=== PATIENT | female | born 1950 | race Caucasian/White ===

== ENCOUNTER 2023-09-23 10:40 | Emergency (ER) | payer MEDICARE, OTHER, SELFPAY ==
[2023-09-23 10:44] VITALS: BP 151/73; PULSE 64; RESP 18; TEMP 35.8; O2SAT 97
--- NOTE | 2023-09-23 10:59 | CT_ITS ---
STUDY: CT ABDOMEN AND PELVIS WITHOUT CONTRAST REASON FOR EXAM: Female, 73 years old. Kidney Stone RADIATION DOSAGE (If Supplied By Facility): CTDIvol = ( 15.96 ) mGy, DLP = ( 809.50 ) mGycm TECHNIQUE: Transaxial images were obtained from the dome of the diaphragm to the symphysis pubis without oral contrast, and without intravenous contrast. Sagittal and coronal images were reconstructed. Individualized dose optimization techniques were used for this CT. COMPARISON: None. FINDINGS: Mild increased markings at the left lung base suggestive of atelectasis. Coronary artery calcification. Normal liver. There are surgical clips in the gallbladder fossa consistent with a prior cholecystectomy. Normal spleen. Normal pancreas. Normal bilateral adrenal glands. Normal right kidney. There is a moderate degree of left hydronephrosis and left hydroureter due to a 6.6 mm x 6.9 mm calculus in the proximal portion of the left ureter. Mild degree of left perinephric stranding. Punctate calculus in the lower pole calyx of the left kidney. There is a small hiatal hernia. Normal small intestine. There are scattered colonic diverticula consistent with diverticulosis. The appendix is visualized and appears normal. There is scattered atherosclerotic calcification of the abdominal aorta, without a demonstrated aneurysm. Normal inferior vena cava. Normal retroperitoneum. Normal urinary bladder. There is absence of the uterus consistent with a prior hysterectomy. Calcified phleboliths are seen in the pelvis. There is a small umbilical hernia containing fat. Disc space narrowing and degeneration at the L5-S1 level. CT/Abdomen/Pelvis without Cont IMPRESSION: 6.6 mm x 6.9 mm calculus in the proximal portion of the left ureter causing left hydronephrosis and proximal left hydroureter. Punctate calculi in the lower pole calyx of the left kidney. Status post cholecystectomy. Electronically Signed: Bryon Alba MD at 11:42 EDT ,
[2023-09-23] MEDS: Ketorolac 30 MG/ML Syringe 15 MG IV (11:12)
[2023-09-23] MEDS: Ondansetron 4 MG/2 ML Vial IV (11:12)
--- NOTE | 2023-09-23 11:12 | EX.ED.DYSGE1 ---
HPI History of Present Illness Chief Complaint: Abd Pain Informant: patient and spouse/S.O. Narrative Narrative: 73-year-old female presenting to the emergency room with lower abdominal pain and vomiting. Patient states that earlier today she was getting a ultrasound with possible biopsy of her thyroid. She had previously gotten up and ate breakfast. She was sitting waiting for her results when she had a rapid onset of lower abdominal pain with vomiting. Now she states the pain seems to have settled in the left lower quadrant radiating up towards her left flank. She notes that she has had prior kidney stones not requiring any surgery in the past. She notes constipation over the past couple days. She denies nausea at this time. No history of diverticulitis or bowel obstruction. Patient notes that she lives in [place]. [facility] Medical History (Updated 09/23/23 @ 12:[address] Louis Cannon DO) Kidney stone Thyroid nodule Home Medications ondansetron 4 mg disintegrating tablet 4 mg PO Q6H PRN PRN Nausea #15 tabs 09/23/23 [Rx Last Taken Unknown] oxycodone-acetaminophen 5 mg-325 mg tablet 1 tab PO Q6H PRN PRN pain 5 days #20 TABLETS 09/23/23 [Rx Last Taken Unknown] Allergy/AdvReac Type Severity Reaction Status Date / Time meclizine [From Antivert] AdvReac Mild Other Verified 09/23/23 10:43 milk AdvReac Mild KIDNEY Verified 09/23/23 10:43 STONES Social History Smoking Status: Never smoker ROS ROS ED Constitutional Constitutional ED: Denies chills or weight loss Eyes Eyes: Denies change in vision or diplopia ENT ENT ED: Denies ear pain, rhinorrhea or sore throat Cardiovascular Cardiovascular: Denies chest pain, orthopnea, palpitations or racing heartbeat Respiratory/Chest Respiratory/Chest: Denies cough, dyspnea or orthopnea Gastrointestinal Gastrointestinal: Reports abdominal pain, constipation, nausea and vomiting; Denies diarrhea Genitourinary Genitourinary ED: Denies dysuria, hematuria or urinary frequency Musculoskeletal Musculoskeletal: Denies arthralgias or myalgias Integumentary Denies abscess or rash Neurologic Neurologic: Denies headache(s) or weakness Psychiatric Psychiatric: Denies anxiety, depression, suicidal ideation or suicidal thoughts Endocrine Endocrinology: Denies polydipsia, polyphagia or polyuria Allergic/Immunologic Allergic/Immunologic ED: Denies mouth swelling, tongue swelling or urticaria EXAM Physical Exam Const Vital Signs: 09/23/23 10:44 09/23/23 12:00 Temperature 96.5 F L 97.6 F L Temperature Source Temporal Pulse Rate 64 78 Respiratory Rate 18 16 Blood Pressure 151/73 H 129/77 H Blood Pressure Mean 99 94 Pulse Ox 97 99 Oxygen Delivery Method Room Air Positive well nourished and well developed General Appearance ED: well developed HEENT Reports normocephalic, head/scalp atraumatic and moist mucous membranes Eyes PERRL and EOMs intact bilaterally Neck no lymphadenopathy, supple and no JVD Resp normal respiratory effort and clear to auscultation bilaterally Cardio regular rate, regular rhythm and no murmurs GI Inspection: Negative for abdominal distention Auscultation: normoactive bowel sounds Palpation: soft and tender LLQ (Mild tenderness without guarding or rebound) Back/Spine no CVA tenderness and normal ROM Extremity normal to inspection General Extremety ED: Negative for edema General Extremity: Negative for edema Neuro oriented x3 and CN's II-XII intact bilaterally Sensorium / Orientation: alert Motor Exam: strength 5/5 throughout Psych mental status grossly normal Mood & Affect: Negative for depressed or tearful Skin no rashes or lesions noted and no wounds MDM MDM MDM Narrative Medical decision making narrative: White count 10.8 with hemoglobin 12.7 platelet count of 239. BMP with a creatinine 1.09 BUN of 21. Urinalysis unfortunately is contaminated 10-25 squamous cells 10-25 white cells 2+ bacteria 50-[address] red cells negative nitrates. CT abdomen pelvis demonstrates a mid ureteral stone measuring 6 to 7 mm with some associated left hydronephroureter. Patient received Zofran and Toradol. She is resting comfortably. She is from [place]. Will give her a copy of her CT images. I will write for her to have pain and nausea medication. She would like to try to get back home and try to pass this and if her pain worsen she is going to go to [facility] in [place]. She will follow-up with urology. I think this is a reasonable plan. She understands that the urine is contaminated and given the fact that she is not febrile and she does not have any dysuria foul-smelling urine or urinary frequency is less likely to be a UTI. History & Record Review Discussion w/independent historian: Patient Lab Data Attestation: I reviewed the patient's lab results. Labs: Laboratory Results - last 24 hr 09/23/23 09/23/23 11:11 12:00 WBC 10.8 RBC 4.40 Hgb 12.7 Hct 39.9 MCV 90.7 MCH 28.9 MCHC 31.8 L RDW Std Deviation 42.3 RDW Coeff of Dana 12.8 Plt Count 239 MPV 10.8 Immature Gran % (Auto) 0.200 Neut % (Auto) 85.6 H Lymph % (Auto) 9.6 L Bacon % (Auto) 4.3 Eos % (Auto) 0.1 Baso % (Auto) 0.2 Absolute Neuts (auto) 9.3 H Absolute Lymphs (auto) 1.04 Nucleated RBC % 0 Sodium 140 Potassium 3.2 L Chloride 104 Carbon Dioxide 31.0 Anion Gap 5 BUN 21 H Creatinine 1.09 H Estim Creat Clear Calc 50.19 Est GFR (MDRD) Af Amer 64 Est GFR (MDRD) Non-Af 53 L BUN/Creatinine Ratio 19.3 Glucose 179 H Calcium 9.5 Urine Color Yellow Urine Clarity Sl. Cloudy Urine pH 6.5 Ur Specific [place] 1.015 Urine Protein 30 H Urine Glucose (UA) Normal Urine Ketones 5 H Urine Occult Blood 250 H Urine Nitrite Negative Urine Bilirubin Negative Urine Urobilinogen Normal Ur Leukocyte Esterase 500 H Urine RBC 50-100 SEEN Urine WBC 10-25 SEEN Ur Squamous Epith Cells 10-25 SEEN Urine Bacteria 2+ Urine Mucus 0 SEEN Radiography Diagnostic Testing: Clinical Impression(s) from Imaging Studies Abdomen/Pelvis CT 09/23/23 10:59 IMPRESSION: 6.6 mm x 6.9 mm calculus in the proximal portion of the left ureter causing left hydronephrosis and proximal left hydroureter. Punctate calculi in the lower pole calyx of the left kidney. Status post cholecystectomy. Electronically Signed: Bryon Alba MD at 11:42 EDT , Discharge Plan Triage Chief Complaint: Abd Pain ED Provider: Louis Cannon Dx/Rx/DC Orders Clinical Impression: Abdominal pain, Kidney stone on left side, Vomiting Instructions: ED Kidney Stone with Pain Prescriptions: New oxycodone-acetaminophen [oxycodone-acetaminophen] 5-325 mg tablet 1 tab PO Q6H PRN PRN (Reason: pain) 5 Days Qty: 20 0RF ondansetron [ondansetron] 4 mg tablet,disintegrating 4 mg PO Q6H PRN PRN (Reason: Nausea) Qty: 15 0RF Primary Care Provider: Justina Menard,Out of Referrals: [facility] ,Out of [Primary Care Provider] - Activity Restrictions/Additional Instructions: Please schedule follow-up with urology when you get home. If your pain worsens between now and when you see the urologist please go to the emergency room. Disposition Disposition: Home, Self Care Discharge Date/Time: 09/23/23 12:25
[2023-09-23 11:16] VITALS: BMI 34.9
[2023-09-23 11:30] LABS: Absolute Lymphocyte Count 1.04 X10^3/uL (0.83-4.51); Absolute Neutrophil Count 9.3 X10^3/uL (2.0-7.7); Basophil# 0.02 X10^3/uL; Basophil% 0.2 % (0-1); Eosinophil# 0.01 X10^3/uL; Eosinophils% 0.1 % (0-5); Hematocrit 39.9 % (37-47); Hemoglobin 12.7 g/dL (12.0-15.0); Lymphocyte # 1.04 X10^3/ul (0.83-4.51); Lymphocyte % 9.6 % (19-41); Mean Corp Hgb Conc 31.8 g/dL (32-36); Mean Corpuscular Hgb 28.9 pg (27.0-32.0); Mean Corpuscular Volume 90.7 fL (81-99); Mean Platelet Vol. 10.8 fl (6.2-12.0); Monocyte# 0.47 X10^3/uL; Monocyte% 4.3 % (0-10); NRBC Flagged by Analyzer 0 % (0-5); Neutrophil # 9.25 X10^3/uL (2.7-7.7); Neutrophil % 85.6 % (47-70); Platelet Count 239 K/mm3 (150-450); RBC Distribution Width CV 12.8 % (11.6-14.6); RBC Distribution Width SD 42.3 fl (35.1-43.9); White Blood Count 10.8 K/mm3 (4.4-11.0)
[2023-09-23 11:41] LABS: Anion Gap 5 (5-15); BUN 21 mg/dL (7-18); BUN/Creat Ratio 19.3 RATIO (10-20); Calcium,Total 9.5 mg/dL (8.5-10.1); Chloride 104 mmol/L (98-107); Creatinine, Serum 1.09 mg/dL (0.55-1.02); EST Glomerular Filtration Rate 53 mL/min (>60); Est Glom Filt Rate - Afr Amer 64 mL/min (>60); Estimated Creatinine Clearance 50.19 ml/min; Glucose 179 mg/dL (74-106); Potassium 3.2 mmol/L (3.5-5.1); Sodium Level 140 mmol/L (136-145)
[2023-09-23 12:00] VITALS: BP 129/77; PULSE 78; RESP 16; TEMP 36.4; O2SAT 99
[2023-09-23 12:15] LABS: Mucous, Urine 0 SEEN /hpf (<or=2+)
[2023-09-23 12:26] LABS: Color, Urine Yellow (Yellow); Glucose, Dipstick Normal (Normal); Ketone-Dipstick 5 mg/dl (Negative); Leukocyte Esterase-Dipstick 500 /ul (Negative); Nitrite-Dipstick Negative (Negative); Occult Blood-Urine 250 /ul (Negative); Protein-Dipstick 30 mg/dl (Negative); Specific Gravity, Urine 1.015 (1.002-1.030); Urine Bilirubin Dipstick Negative (Negative); Urine Clarity Sl. Cloudy (Clear); Urine Urobilinogen Normal (Normal); Urine pH 6.5 (5.0 - 8.0)
[2023-09-23 12:32] LABS: Squamous Epithelial Cells - UA 10-25 SEEN /hpf (5-10)
[2023-09-23 12:33] LABS: Red Blood Cells-Urine 50-100 SEEN /hpf (0-5)
[2023-09-23 12:34] LABS: Bacteria 2+ /hpf (None Seen); White Blood Cells 10-25 SEEN /hpf (0-5)
== END 2023-09-23 12:25 | disposition home or self-care (01) ==
PROVIDERS: Emergency Provider Emergency Medicine; Visit Provider Emergency Medicine
DX: N13.2 Hydronephrosis with renal and ureteral calculous obstruction (principal); R11.2 Nausea with vomiting, unspecified; R10.9 Unspecified abdominal pain
CPT/HCPCS: 74176; 80048; 81001; 85025; 96374; 96375; 99283; A4216; J2405